=== PATIENT | female | born 1945 | race Caucasian/White ===

== ENCOUNTER 2020-07-29 11:50 | Emergency (ER) | payer MEDICARE, BC ==
[~2020-07-29] VITALS: Ht 172.7 cm; Wt 65.9 kg
[~2020-07-29 11:50] MED LIST: AMIT-189 PO; ESTR30GE TOP; FLUO20CA39 PO; LEVO1CAP PO; PROG100C11 PO; VERA120T2 PO; VINP1POW PO; VIT1TABL5 PO; VIT1TABL76 PO
[2020-07-29] MEDS ORDERED: diphenhydrAMINE 50 mg/ml inj IV ONE (15:25)
[2020-07-29] MEDS ORDERED: proCHLORperazine 10 MG/2 ml inj IV ONE (15:25)
[2020-07-29] MEDS ORDERED: normal saline 1000ML IV soln IVB ONE (15:25)
--- NOTE | 2020-07-29 16:46 | NUR ---
relieving RN for break, pt is going CT on isolation precautions, covid test is a send out to public health per Dion Sanchez [employer], lab aware
--- NOTE | 2020-07-29 17:49 | NUR ---
PT GIVEN WATER, YOGURT AND CRACKERS. PT STATES SHE JUST WANTS TO GO HOME AND GO TO SLEEP IN HER OWN BED. INFORMED THE PT THAT WE ARE ONLY WAITING ON HER COVID TEST.
[2020-07-29 18:21] VITALS: BP 148/76
== END 2020-07-29 18:20 | disposition home or self-care (01) ==
LOC: ER 11:50
DX: G43.909 Migraine, unspecified, not intractable, without status migrainosus (principal); R06.02 Shortness of breath; R11.2 Nausea with vomiting, unspecified; J02.9 Acute pharyngitis, unspecified; R42 Dizziness and giddiness; E11.9 Type 2 diabetes mellitus without complications; F41.9 Anxiety disorder, unspecified; F32.9 Major depressive disorder, single episode, unspecified; Z90.49 Acquired absence of other specified parts of digestive tract; Z88.1 Allergy status to other antibiotic agents; Z88.0 Allergy status to penicillin; Z88.8 Allergy status to other drugs, medicaments and biological substances; Z79.899 Other long term (current) drug therapy
CPT/HCPCS: 70450; 87635; 96361; 96374; 96375; 99284; C9803; J0780; J1200; J7030

== ENCOUNTER 2022-04-15 12:34 | Outpatient (CLI) | payer MEDICARE, BC ==
[2022-04-15] VITALS (22 sets, daily range): BP systolic 114–151; BP diastolic 43–97
== END 2022-04-15 23:59 | disposition home or self-care (01) ==
LOC: CARD DIAG 12:34
PROVIDERS: ATTEND Internal Medicine Cardiovascular Disease
DX: R42 Dizziness and giddiness (principal)
CPT/HCPCS: 93660

== ENCOUNTER 2024-09-30 14:04 | Outpatient (CLI) | payer MEDICARE, BC ==
[~2024-09-30 14:04] MED LIST changes: -AMIT-189 PO; +AMIT50TA15 PO
[2024-09-30 14:32] LABS: BILIRUBIN,URINE NEGATIVE (Neg); CLARITY,URINE CLEAR (Clear); COLOR,URINE STRAW (Yellow); GLUCOSE, URINE NEGATIVE (Neg); KETONES,URINE NEGATIVE (Neg); LEUKOCYTE ESTERASE ,URINE SMALL (Neg); OCCULT BLOOD,URINE NEGATIVE (Neg); PROTEIN,URINE NEGATIVE (Neg); UROBILINOGEN,URINE 0.2 E.U/dL (0.2-1.0)
[2024-09-30 14:39] LABS: NITRITES, URINE NEGATIVE (Neg); UA COLLECTION TYPE NON-SPECIFIED
[2024-09-30 14:48] LABS: BACTERIA,URINE FEW /HPF (Neg); MUCUS STRANDS NONE SEEN /LPF (Neg); RBC,URINE NONE SEEN /HPF (0-2); SQUAMOUS EPITHELIAL CELL,UR FEW /LPF (FEW); TRANSITIONAL EPI CELLS,URINE MODERATE /HPF; WBC,URINE 0-4 /HPF (0-4)
== END 2024-09-30 23:59 | disposition home or self-care (01) ==
LOC: LAB 14:04
PROVIDERS: ATTEND Nurse Practitioner Family
DX: C10.9 Malignant neoplasm of oropharynx, unspecified (principal); N39.0 Urinary tract infection, site not specified
CPT/HCPCS: 81001